=== PATIENT | male | born 1950 | race Two or more races ===

== ENCOUNTER 2023-06-18 19:36 | Emergency (ER) | payer MEDICARE ==
[~2023-06-18] VITALS: Ht 175.3 cm; Wt 76.5 kg
[2023-06-18 19:40] VITALS: BP 137/78; TEMP 98.6
[2023-06-18] MEDS: dexamethasone sod phosphate 10mg/ml inj PO STA (20:54)
[2023-06-18] MEDS: erythromycin ophthalmic ointment 1gm tube EACHEYE ONE (20:54)
[2023-06-18] MEDS: ipratropium/albuterol 3ml nebule NEB ONE (20:55)
[2023-06-18 20:56] VITALS: PULSE 67; O2SAT 99
[2023-06-18 21:07] VITALS: PULSE 69; RESP 18; O2SAT 99
[2023-06-18] MEDS: DOXYCYCLINE 100MG CAPSULE PO STA (21:38)
[2023-06-18] MEDS: amox tr/potassium clavulanate 875/125mg TAB PO ONE (21:38)
[2023-06-18] MEDS ORDERED: DOXY-457 PO (21:45)
[2023-06-18] MEDS ORDERED: ALBU8HFA PO (21:45)
[2023-06-18] MEDS ORDERED: AMOX-580 PO (21:45)
== END 2023-06-18 21:50 | disposition home or self-care (01) ==
LOC: ER 19:37
DX: T78.40XA Allergy, unspecified, initial encounter (principal); J18.9 Pneumonia, unspecified organism; R06.2 Wheezing; X58.XXXA Exposure to other specified factors, initial encounter
CPT/HCPCS: 71045; 94640; 99284; J1100; 94760